=== PATIENT | male | born 1950 | race Caucasian/White ===

== ENCOUNTER 2017-11-09 12:11 | Inpatient (IN) | payer MEDICARE ==
[~2017-11-09] VITALS: Ht 172.7 cm; Wt 67.5 kg
[2017-11-09 12:41] LABS: BASOPHILS ABSOLUTE AUTO 0.06 K/mm3 (0.00-0.23); BASOPHILS PERCENT AUTO 0 % (0-2); EOSINOPHILS ABSOLUTE AUTO 0.17 K/mm3 (0.00-0.68); EOSINOPHILS PERCENT AUTO 1 % (0-6); Hematocrit 44.7 % (37.0-53.0); Hemoglobin 15.2 g/dL (13.5-17.5); IMMATURE GRAN ABSOLUTE AUTO 0.06 K/mm3 (0.00-0.10); IMMATURE GRAN PERCENT AUTO 0 % (0-1); LYMPHOCYTES ABSOLUTE AUTO 1.19 K/mm3 (0.84-5.20); LYMPHOCYTES PERCENT AUTO 7 % (21-46); MONOCYTES ABSOLUTE AUTO 1.21 K/mm3 (0.16-1.47); MONOCYTES PERCENT AUTO 7 % (4-13); Mean Corpuscular HGB 28.7 pg (26.0-34.0); Mean Corpuscular Volume 84 fL (80-100); NEUTROPHILS ABSOLUTE AUTO 14.13 K/mm3 (1.96-9.15); NEUTROPHILS PERCENT AUTO 84 % (41-73); Platelet Count 236 K/mm3 (150-400); RDW Coefficient Variation 12.8 % (11.7-14.2); RDW Standard Deviation 39.6 fL (35.1-46.3); White Blood Cell Count 16.82 K/mm3 (4.00-11.30)
[2017-11-09 12:57] LABS: International Normalized Ratio 1.1; Prothrombin Time Results 11.5 Sec (9.7-11.5)
[2017-11-09 13:04] LABS: Alanine Aminotransfer (ALT/SGP 15 U/L (12-78); Albumin, Blood 3.7 g/dL (3.4-5.0); Alk Phos 103 U/L (50-136); Anion Gap 7 mmol/L (6-16); Aspartate Aminotrans (AST/SGOT 11 U/L (12-37); Bilirubin, Total 0.5 mg/dL (0.1-1.0); Blood Urea Nitrogen 27 mg/dL (8-24); Bun/Creatinine Ratio 18.1 (12.0-20.0); CO2, Blood 25 mmol/L (21-32); Calcium, Blood 9.4 mg/dL (8.5-10.1); Chloride, Blood 107 mmol/L (98-108); Creatinine, Blood 1.49 mg/dL (0.60-1.20); Globulin, Blood 3.6 g/dL (2.2-4.0); Glomerular Filtration Rate 50 (60-); Glucose, Blood 146 mg/dL (70-99); Potassium, Blood 4.2 mmol/L (3.5-5.5); Sodium, Blood 139 mmol/L (136-145); Total Protein, Blood 7.3 g/dL (6.4-8.2); Troponin I <0.015 ng/mL (0.000-0.040)
[2017-11-09 21:57] LABS: Appearance, Urine Clear (Clear); Bilirubin, Urine Neg (Neg); Blood, Urine 2+ (Neg); Color, Urine Yellow (P-Yellow); Glucose Qualitative, Urine 1+ (Neg); Ketones, Urine Neg (Neg); Leukocyte Esterase, Urine Neg (Neg); Nitrite, Urine Neg (Neg); Protein, Urine 3+ (Neg); Specific Gravity, Urine 1.015 (1.003-1.022); Urobilinogen, Urine NORM (Normal)
[2017-11-09 22:11] LABS: Bacteria Not Seen /hpf; Red Blood Cells, Urine Not Seen /hpf (0-2); Squamous Epithelial Cells Not Seen /hpf (Few); White Blood Cells, Urine Not Seen /hpf (0-5)
[2017-11-10 05:39] LABS: Hematocrit 37.9 % (37.0-53.0); Hemoglobin 12.6 g/dL (13.5-17.5); Mean Corpuscular HGB 28.4 pg (26.0-34.0); Mean Corpuscular HGB Conc 33.2 g/dL (31.5-36.5); Mean Corpuscular Volume 86 fL (80-100); Mean Platelet Volume 10.5 fL (9.1-12.4); Platelet Count 188 K/mm3 (150-400); RDW Coefficient Variation 12.9 % (11.7-14.2); RDW Standard Deviation 40.3 fL (35.1-46.3); Red Blood Cell Count 4.43 M/mm3 (4.30-5.90); White Blood Cell Count 22.02 K/mm3 (4.00-11.30)
[2017-11-10 06:02] LABS: Bun/Creatinine Ratio 21.9 (12.0-20.0); Creatinine, Blood 1.51 mg/dL (0.60-1.20); Potassium, Blood 4.1 mmol/L (3.5-5.5)
[2017-11-10] MEDS ORDERED: ACET325 PO (11:34)
[2017-11-10] MEDS ORDERED: CLOP75 PO (11:35)
[2017-11-10] MEDS ORDERED: ASPI81CH PO (11:35)
[2017-11-10] MEDS ORDERED: ROBITUSSIN100 MG/5 M PO (11:36)
[2017-11-10] MEDS ORDERED: Hydrocodone-Ap1 EA20 PO (11:37)
[2017-11-10] MEDS ORDERED: METO25ER PO (11:38)
[2017-11-10] MEDS ORDERED: Nicoderm Cq1 EAC1 TD (11:38)
[2017-11-10] MEDS ORDERED: PANT40 PO (11:39)
[2017-11-10] MEDS ORDERED: ALBU90OI INH (11:39)
[2017-11-10] MEDS ORDERED: Amox Tr-K Clv1 EAC2 PO (11:40)
[2017-11-10] MEDS ORDERED: METF500C PO (11:41)
[2017-11-10] MEDS ORDERED: DULERA 100 MCG/13 GM INH (11:41)
[2017-11-10] MEDS ORDERED: (None)20 M1 PO (11:42)
[2017-11-10] MEDS ORDERED: SIMV40 PO (11:43)
== END 2017-11-10 12:50 | disposition home or self-care (01) | DRG 871 ==
LOC: ER 12:11 → MEDS 14:11
PROVIDERS: Emergency Medicine; Internal Medicine
DX: A41.9 Sepsis, unspecified organism (principal); J18.9 Pneumonia, unspecified organism; J96.01 Acute respiratory failure with hypoxia; N17.9 Acute kidney failure, unspecified; R65.20 Severe sepsis without septic shock; J44.9 Chronic obstructive pulmonary disease, unspecified; N18.3 Chronic kidney disease, stage 3 (moderate); I25.10 Atherosclerotic heart disease of native coronary artery without angina pectoris; G89.29 Other chronic pain; M54.9 Dorsalgia, unspecified; E11.22 Type 2 diabetes mellitus with diabetic chronic kidney disease; I50.9 Heart failure, unspecified; F17.210 Nicotine dependence, cigarettes, uncomplicated; Z95.1 Presence of aortocoronary bypass graft; Z95.810 Presence of automatic (implantable) cardiac defibrillator
CPT/HCPCS: 36415; 71046; 80048; 80053; 81001; 83605; 83880; 84484; 85025; 85027; 85610; 85730; 87070; 87086; 87205; 93005; 93010; 94640; 94644; 94760; 96361; 96365; 96367; 96375; 99285; J0456; J0696; J1650; J2930; J7030; J7050

== ENCOUNTER 2018-01-30 13:06 | Emergency (ER) | payer MEDICARE ==
[~2018-01-30] VITALS: Ht 172.7 cm; Wt 68.0 kg
[~2018-01-30 13:06] MED LIST: (None)20 M1 PO; ACET325 PO; ALBU90OI INH; ASPI81CH PO; Amox Tr-K Clv1 EAC2 PO; CLOP75 PO; DULERA 100 MCG/13 GM INH; Hydrocodone-Ap1 EA20 PO; METF500C PO; METO25ER PO; Nicoderm Cq1 EAC1 TD; PANT40 PO; ROBITUSSIN100 MG/5 M PO; SIMV40 PO
[2018-01-30 14:59] LABS: BASOPHILS ABSOLUTE AUTO 0.06 K/mm3 (0.00-0.23); BASOPHILS PERCENT AUTO 1 % (0-2); EOSINOPHILS ABSOLUTE AUTO 0.22 K/mm3 (0.00-0.68); EOSINOPHILS PERCENT AUTO 2 % (0-6); Hematocrit 44.5 % (37.0-53.0); Hemoglobin 14.6 g/dL (13.5-17.5); IMMATURE GRAN ABSOLUTE AUTO 0.03 K/mm3 (0.00-0.10); IMMATURE GRAN PERCENT AUTO 0 % (0-1); LYMPHOCYTES ABSOLUTE AUTO 2.55 K/mm3 (0.84-5.20); LYMPHOCYTES PERCENT AUTO 27 % (21-46); MONOCYTES ABSOLUTE AUTO 0.87 K/mm3 (0.16-1.47); MONOCYTES PERCENT AUTO 9 % (4-13); Mean Corpuscular HGB 27.9 pg (26.0-34.0); Mean Corpuscular HGB Conc 32.8 g/dL (31.5-36.5); Mean Corpuscular Volume 85 fL (80-100); Mean Platelet Volume 9.9 fL (9.1-12.4); NEUTROPHILS ABSOLUTE AUTO 5.89 K/mm3 (1.96-9.15); NEUTROPHILS PERCENT AUTO 61 % (41-73); Platelet Count 214 K/mm3 (150-400); RDW Coefficient Variation 13.5 % (11.7-14.2); Red Blood Cell Count 5.23 M/mm3 (4.30-5.90); White Blood Cell Count 9.62 K/mm3 (4.00-11.30)
[2018-01-30 15:20] LABS: Bun/Creatinine Ratio 19.6 (12.0-20.0); Calcium, Blood 9.5 mg/dL (8.5-10.1); Creatinine, Blood 1.38 mg/dL (0.60-1.20); Potassium, Blood 3.8 mmol/L (3.5-5.5)
[2018-01-30] MEDS ORDERED: CYCL10 PO (15:57)
== END 2018-01-30 16:46 | disposition home or self-care (01) ==
LOC: ER 13:06
PROVIDERS: Emergency Medicine
DX: M54.5 Low back pain (principal); G89.29 Other chronic pain; G31.89 Other specified degenerative diseases of nervous system
CPT/HCPCS: 72131; 80048; 85025; 96374; 99284-25; J3010

== ENCOUNTER 2018-03-24 08:01 | Emergency (ER) | payer MEDICARE ==
[~2018-03-24] VITALS: Ht 172.7 cm; Wt 77.1 kg
[~2018-03-24 08:01] MED LIST changes: +CYCL10 PO
[2018-03-24 09:45] LABS: BASOPHILS ABSOLUTE AUTO 0.09 K/mm3 (0.00-0.23); BASOPHILS PERCENT AUTO 1 % (0-2); EOSINOPHILS ABSOLUTE AUTO 0.39 K/mm3 (0.00-0.68); EOSINOPHILS PERCENT AUTO 4 % (0-6); Hematocrit 44.9 % (37.0-53.0); Hemoglobin 14.6 g/dL (13.5-17.5); IMMATURE GRAN ABSOLUTE AUTO 0.03 K/mm3 (0.00-0.10); IMMATURE GRAN PERCENT AUTO 0 % (0-1); LYMPHOCYTES ABSOLUTE AUTO 2.05 K/mm3 (0.84-5.20); LYMPHOCYTES PERCENT AUTO 21 % (21-46); MONOCYTES ABSOLUTE AUTO 0.98 K/mm3 (0.16-1.47); MONOCYTES PERCENT AUTO 10 % (4-13); Mean Corpuscular HGB 28.2 pg (26.0-34.0); Mean Corpuscular HGB Conc 32.5 g/dL (31.5-36.5); Mean Corpuscular Volume 87 fL (80-100); Mean Platelet Volume 9.7 fL (9.1-12.4); NEUTROPHILS ABSOLUTE AUTO 6.38 K/mm3 (1.96-9.15); NEUTROPHILS PERCENT AUTO 64 % (41-73); Platelet Count 216 K/mm3 (150-400); RDW Standard Deviation 41.2 fL (35.1-46.3); Red Blood Cell Count 5.17 M/mm3 (4.30-5.90); White Blood Cell Count 9.92 K/mm3 (4.00-11.30)
[2018-03-24 10:01] LABS: Bun/Creatinine Ratio 19.4 (12.0-20.0); Calcium, Blood 9.5 mg/dL (8.5-10.1); Creatinine, Blood 1.29 mg/dL (0.60-1.20)
[2018-03-24] MEDS ORDERED: ALBU90OI INH (10:45)
[2018-03-24] MEDS ORDERED: Prednisone20 MG PO (10:45)
[2018-03-24] MEDS ORDERED: Cyclobenzaprine5 MG PO (10:57)
[2018-03-24] MEDS ORDERED: Vibramycin100 MG PO (11:46)
[2018-03-24] MEDS ORDERED: Proventil5 MG/1 ML INH (11:46)
== END 2018-03-24 11:54 | disposition home or self-care (01) ==
LOC: ER 08:01
PROVIDERS: Emergency Medicine
DX: J44.1 Chronic obstructive pulmonary disease with (acute) exacerbation (principal); I25.10 Atherosclerotic heart disease of native coronary artery without angina pectoris; I50.9 Heart failure, unspecified; F17.210 Nicotine dependence, cigarettes, uncomplicated
CPT/HCPCS: 36415; 71046; 80048; 85025; 93005; 93010; 94644; 96374; 96375; 99284-25; J1885; J2930

== ENCOUNTER 2018-06-10 17:11 | Emergency (ER) | payer MEDICARE ==
[~2018-06-10] VITALS: Ht 172.7 cm; Wt 79.4 kg
[~2018-06-10 17:11] MED LIST changes: +CARV3.125; +CLOP75; +Cyclobenzaprine5 MG PO; +IBUP600 PO; +ISOD40ER; +LEVO750 PO; +Prednisone20 MG PO; +Prednisone50 MG PO; +Proventil5 MG/1 ML INH; +TIOT18 INH; +Vibramycin100 MG PO
== END 2018-06-10 18:39 | disposition home or self-care (01) ==
LOC: ER 17:11
DX: J44.9 Chronic obstructive pulmonary disease, unspecified (principal); I10 Essential (primary) hypertension; F17.210 Nicotine dependence, cigarettes, uncomplicated; Z79.899 Other long term (current) drug therapy; Z79.01 Long term (current) use of anticoagulants; Z79.52 Long term (current) use of systemic steroids; Z86.73 Personal history of transient ischemic attack (TIA), and cerebral infarction without residual deficits
CPT/HCPCS: 71046; 99283-25

== ENCOUNTER 2018-06-13 23:27 | Emergency (ER) | payer MEDICARE ==
[~2018-06-13] VITALS: Ht 172.7 cm; Wt 77.1 kg
[2018-06-14] MEDS ORDERED: Prednisone20 MG PO (01:03)
[2018-06-14] MEDS ORDERED: Norco 5-325 Ta1 EACH PO (01:04)
== END 2018-06-14 01:57 | disposition home or self-care (01) ==
LOC: ER 23:27
DX: M54.32 Sciatica, left side (principal); I10 Essential (primary) hypertension; F17.210 Nicotine dependence, cigarettes, uncomplicated; Z86.73 Personal history of transient ischemic attack (TIA), and cerebral infarction without residual deficits
CPT/HCPCS: 96372; 99283-25; J1885

== ENCOUNTER 2018-06-18 10:08 | Inpatient (IN) | payer MEDICARE ==
[~2018-06-18] VITALS: Ht 172.7 cm; Wt 75.2 kg
[~2018-06-18 10:08] MED LIST changes: +Norco 5-325 Ta1 EACH PO
[2018-06-18 10:57] LABS: BASOPHILS ABSOLUTE AUTO 0.02 K/mm3 (0.00-0.23); BASOPHILS PERCENT AUTO 0 % (0-2); EOSINOPHILS PERCENT AUTO 1 % (0-6); Hematocrit 40.1 % (37.0-53.0); Hemoglobin 12.8 g/dL (13.5-17.5); IMMATURE GRAN ABSOLUTE AUTO 0.12 K/mm3 (0.00-0.10); IMMATURE GRAN PERCENT AUTO 1 % (0-1); LYMPHOCYTES PERCENT AUTO 21 % (21-46); MONOCYTES ABSOLUTE AUTO 1.32 K/mm3 (0.16-1.47); MONOCYTES PERCENT AUTO 8 % (4-13); Mean Corpuscular HGB 27.9 pg (26.0-34.0); Mean Corpuscular HGB Conc 31.9 g/dL (31.5-36.5); Mean Corpuscular Volume 87 fL (80-100); Mean Platelet Volume 9.6 fL (9.1-12.4); NEUTROPHILS ABSOLUTE AUTO 12.03 K/mm3 (1.96-9.15); NEUTROPHILS PERCENT AUTO 70 % (41-73); Platelet Count 278 K/mm3 (150-400); RDW Coefficient Variation 13.9 % (11.7-14.2); RDW Standard Deviation 44.8 fL (35.1-46.3); Red Blood Cell Count 4.59 M/mm3 (4.30-5.90); White Blood Cell Count 17.19 K/mm3 (4.00-11.30)
[2018-06-18 11:14] LABS: Albumin, Blood 3.1 g/dL (3.4-5.0); Bilirubin, Total 0.4 mg/dL (0.1-1.0); Bun/Creatinine Ratio 25.4 (12.0-20.0); Calcium, Blood 8.7 mg/dL (8.5-10.1); Creatinine, Blood 1.85 mg/dL (0.60-1.20); Globulin, Blood 3.2 g/dL (2.2-4.0); Potassium, Blood 3.8 mmol/L (3.5-5.5); Total Protein, Blood 6.3 g/dL (6.4-8.2); Troponin I 0.085 ng/mL (0.000-0.040)
[2018-06-18 11:54] LABS: Influenza A Negative (NEGATIVE); Influenza B Negative (NEGATIVE)
--- NOTE | 2018-06-18 17:40 | NUR ---
PT ADM [facility]. TELE PLACED. PT C/O SCIATIC PAIN. MEDICATED PER EMAR. PT REQUESTS STRONGER PAIN RELIEF AND NICOTINE PATCH. WILL CONFER WITH DR. STOKES INDEPENDENT IN ROOM. CALL LIGHT IN REACH. WILL MEDICATE PER EMAR.
--- NOTE | 2018-06-19 04:55 | NUR ---
SHIFT SUMMARY PT HAS RESTED THROUGOUT SHIFT. PT WAS ORDERED UPDRAFT TX AND RESPONDED WELL. PT DENIES ANY ACUTE ISSUES AND IS WANTING TO FEEL BETTER. PT IS CURRENTLY SLEEPING AND BREATHING EASY. BED IN LOW POSITION AND CALL LIGHT IN REACH.
[2018-06-19 05:29] LABS: BASOPHILS ABSOLUTE AUTO 0.01 K/mm3 (0.00-0.23); BASOPHILS PERCENT AUTO 0 % (0-2); EOSINOPHILS PERCENT AUTO 0 % (0-6); Hematocrit 36.7 % (37.0-53.0); Hemoglobin 11.7 g/dL (13.5-17.5); IMMATURE GRAN ABSOLUTE AUTO 0.13 K/mm3 (0.00-0.10); IMMATURE GRAN PERCENT AUTO 1 % (0-1); LYMPHOCYTES ABSOLUTE AUTO 1.08 K/mm3 (0.84-5.20); LYMPHOCYTES PERCENT AUTO 7 % (21-46); MONOCYTES ABSOLUTE AUTO 1.25 K/mm3 (0.16-1.47); MONOCYTES PERCENT AUTO 9 % (4-13); Mean Corpuscular HGB 27.7 pg (26.0-34.0); Mean Corpuscular HGB Conc 31.9 g/dL (31.5-36.5); Mean Corpuscular Volume 87 fL (80-100); Mean Platelet Volume 9.5 fL (9.1-12.4); NEUTROPHILS ABSOLUTE AUTO 12.15 K/mm3 (1.96-9.15); NEUTROPHILS PERCENT AUTO 83 % (41-73); Platelet Count 244 K/mm3 (150-400); RDW Coefficient Variation 13.9 % (11.7-14.2); RDW Standard Deviation 43.8 fL (35.1-46.3); Red Blood Cell Count 4.23 M/mm3 (4.30-5.90); White Blood Cell Count 14.62 K/mm3 (4.00-11.30)
[2018-06-19 05:53] LABS: Bun/Creatinine Ratio 30.1 (12.0-20.0); Calcium, Blood 8.5 mg/dL (8.5-10.1); Creatinine, Blood 1.66 mg/dL (0.60-1.20); Potassium, Blood 4.6 mmol/L (3.5-5.5)
--- NOTE | 2018-06-19 06:43 | NUR ---
PT PLACED ON 2 LPM NC DUE TO INCREASED SOB. PT LS ARE TIGHT AND DIMMINISHED THROUGHOUT. RT STATES HE IS NOT DUE FOR TX UNTIL 0800. PT RESPONDED WELL TO O2.
--- NOTE | 2018-06-19 09:49 | NUR ---
NOTIFIED DR. POLO PT C/O BACK PAIN AND SCIATIC PAIN THAT HE RATES 10/10 AND THAT AT HOME HE REPORTS TAKING 2 TABS OF VICODEN 325MG Q4H PRN FOR PAIN. SAID TO ORDER PT'S HOME DOSE OF PAIN MED. NOTIFIED DR. POLO PT'S BP THIS AM IS 171/68 1 HOUR AFTER TAKING HIS BP MED. DR. POLO SAID TO ORDER 10MG IV HYDRALAZINE Q6 PRN FOR SYSTOLIC OVER 160. NO OTHER NEW ORDERS AT THIS TIME.
--- NOTE | 2018-06-19 16:10 | NUR ---
THIS RN ASSUMED CARE OF PATIENT FROM [facility]. WILL CONTINUE WITH POC
--- NOTE | 2018-06-19 17:00 | NUR ---
ASSUMED CARE FROM [facility] SALGADO
[2018-06-20 04:54] LABS: BASOPHILS ABSOLUTE AUTO 0.02 K/mm3 (0.00-0.23); BASOPHILS PERCENT AUTO 0 % (0-2); EOSINOPHILS ABSOLUTE AUTO 0.12 K/mm3 (0.00-0.68); EOSINOPHILS PERCENT AUTO 1 % (0-6); Hematocrit 36.5 % (37.0-53.0); Hemoglobin 11.6 g/dL (13.5-17.5); IMMATURE GRAN ABSOLUTE AUTO 0.14 K/mm3 (0.00-0.10); IMMATURE GRAN PERCENT AUTO 1 % (0-1); LYMPHOCYTES ABSOLUTE AUTO 2.12 K/mm3 (0.84-5.20); LYMPHOCYTES PERCENT AUTO 12 % (21-46); MONOCYTES ABSOLUTE AUTO 1.76 K/mm3 (0.16-1.47); MONOCYTES PERCENT AUTO 10 % (4-13); Mean Corpuscular HGB 27.8 pg (26.0-34.0); Mean Corpuscular HGB Conc 31.8 g/dL (31.5-36.5); Mean Corpuscular Volume 88 fL (80-100); Mean Platelet Volume 9.6 fL (9.1-12.4); NEUTROPHILS ABSOLUTE AUTO 14.02 K/mm3 (1.96-9.15); NEUTROPHILS PERCENT AUTO 77 % (41-73); Platelet Count 244 K/mm3 (150-400); RDW Coefficient Variation 14.1 % (11.7-14.2); RDW Standard Deviation 45.1 fL (35.1-46.3); Red Blood Cell Count 4.17 M/mm3 (4.30-5.90); White Blood Cell Count 18.18 K/mm3 (4.00-11.30)
--- NOTE | 2018-06-20 04:57 | NUR ---
SHIFT SUMMARY PT A&O, SITTING UPRIGHT IN BED AT START OF SHIFT. PLEASANT AND TALKATIVE. PT LATER C/O SOB AFTER MOVING AROUND AND GETTING UP TO EOB. PT HAD TAKEN O2 NC OFF AND FORGOT TO PUT BACK ON. RT TX GIVEN AND PT REPORTED IMPROVEMENT. HX OF CABG, HTN, CKD, COPD AND BACK SX'S. PT REPORTED N/T IN BLE'S; MAINLY IN L LEG RELATED TO SCIATICA. USES CANE AND SBA TO AMBULATE TO BTHRM. MEDICATED PER EMAR FOR C/O PAIN IN BACK. CALL LT IN REACH. VISITOR IN AGAIN TONIGHT FOR A WHILE, REPORTED PT HOMELESS BEFORE ADMIT. ABLE TO MAKE NEEDS KNOWN.
[2018-06-20 05:28] LABS: Albumin, Blood 2.5 g/dL (3.4-5.0); Albumin/Globulin Ratio 0.9 (0.8-1.8); Bilirubin, Total 0.4 mg/dL (0.1-1.0); Bun/Creatinine Ratio 27.7 (12.0-20.0); Calcium, Blood 8.2 mg/dL (8.5-10.1); Creatinine, Blood 1.59 mg/dL (0.60-1.20); Globulin, Blood 2.9 g/dL (2.2-4.0); Magnesium, Blood 1.7 mg/dL (1.6-2.4); Potassium, Blood 4.1 mmol/L (3.5-5.5); Total Protein, Blood 5.4 g/dL (6.4-8.2)
--- NOTE | 2018-06-20 11:36 | NUR ---
Austyn was alert, friendly and communicative. No indications of unmanaged pain, labored breathing, or nauseau. Connor did express non-pathological levels of anxiety and worry secondary to his transient status in [place], and his inability to secure back surgery service. This is a source of extreme frustration for him since this was his rational for him coming [facility] recommendation [facility] a [facility]. I administered pschological first aid, helped him process his experience, and provided encouragement and comfort. Connor reports that his strategy is to return to [place] in the next week or so where he has a safe and fair living situation established. Connor thanked me for the attention and show of support, and invited me to visit again. I offered parting words of reassurance, and quietly excused myself.
--- NOTE | 2018-06-20 15:10 | NUR ---
Echocardiogram performed.
--- NOTE | 2018-06-20 18:20 | NUR ---
SHIFT SUMMARY PT AXO, PLEASANT AND COOPERATIVE WITH CARE. PT HYPERTENSIVE THOUGH HYDRALAZINE NOT YET INDICATED. PT MEDICATED FOR PAIN PER EMAR. NO ACUTE CHANGES THIS SHIFT. REPORTS AN INPROVEMENT WITH HIS BREATHING THOUGH CONTINUES TO HAVE PRODUCTIVE COUGH. IV PATENT AND SALINE LOCKED. BED IN LOW POSITION, CALL LIGHT WITHIN REACH, BED ALARM ON.
--- NOTE | 2018-06-21 04:19 | NUR ---
SHIFT SUMMARY: PT IS ALERT AND ORIENTED. PT IS CALM AND COOEPRATIVE WITH CARE. PT CALLS APPROPRIATELY. PT IS INDEPENDENT IN THE ROOM. PT REPORTS BACK PAIN, MEDICATING PER EMAR. PT REPORTS INTERMITTENT SOB, O2 @ 1.5 L, BREATHING TREATMENTS NEEDED. PT DENIES NAUSEA AND VOMITING. NO ACUTE CHANGES OR COMPLICATIONS THIS SHIFT. BED IN LOW POSITION, CALL LIGHT WITHIN REACH.
[2018-06-21 05:35] LABS: Bun/Creatinine Ratio 22.7 (12.0-20.0); Calcium, Blood 8.6 mg/dL (8.5-10.1); Creatinine, Blood 1.63 mg/dL (0.60-1.20); Potassium, Blood 4.2 mmol/L (3.5-5.5)
[2018-06-21 09:12] LABS: BASOPHILS ABSOLUTE AUTO 0.02 K/mm3 (0.00-0.23); BASOPHILS PERCENT AUTO 0 % (0-2); EOSINOPHILS PERCENT AUTO 3 % (0-6); Hematocrit 37.6 % (37.0-53.0); Hemoglobin 11.8 g/dL (13.5-17.5); IMMATURE GRAN ABSOLUTE AUTO 0.12 K/mm3 (0.00-0.10); IMMATURE GRAN PERCENT AUTO 1 % (0-1); LYMPHOCYTES ABSOLUTE AUTO 2.39 K/mm3 (0.84-5.20); LYMPHOCYTES PERCENT AUTO 14 % (21-46); MONOCYTES ABSOLUTE AUTO 1.43 K/mm3 (0.16-1.47); MONOCYTES PERCENT AUTO 8 % (4-13); Mean Corpuscular HGB 27.6 pg (26.0-34.0); Mean Corpuscular HGB Conc 31.4 g/dL (31.5-36.5); Mean Corpuscular Volume 88 fL (80-100); Mean Platelet Volume 10.1 fL (9.1-12.4); NEUTROPHILS ABSOLUTE AUTO 12.53 K/mm3 (1.96-9.15); NEUTROPHILS PERCENT AUTO 74 % (41-73); Platelet Count 229 K/mm3 (150-400); Red Blood Cell Count 4.27 M/mm3 (4.30-5.90); White Blood Cell Count 16.99 K/mm3 (4.00-11.30)
--- NOTE | 2018-06-21 17:46 | NUR ---
SUMMARY PT SITTING UP AT THE BEDSIDE EATING HIS DINNER, PT HAD DIFFICULT VOIDING T/O THE DAY, BLADDER SCAN SHOWED >999MLS IN HIS BLADDER, ORDER OBTAINED FOR FLOMAX AND STRAIGHT CATH PRN, PT RESISTANT TO THE STRAIGHT CATH FOR MOST OF THE DAY, PT ATTEMPTED TO VOID IN THE BATHROOM FREQUENTLY, PT FINALLY ALLOWED STRAIGHT CATH AT 1730, 1050 MLS OF URINE DRAINED, EDUCATED THE PT REGARDING BLADDER SCANS AND STRAIGHT CATH, PT HAS BEEN MEDICATED FOR PAIN PER EMAR T/O THE DAY, WILL CONT TO MONITOR
[2018-06-22 05:18] LABS: BASOPHILS ABSOLUTE AUTO 0.02 K/mm3 (0.00-0.23); BASOPHILS PERCENT AUTO 0 % (0-2); EOSINOPHILS ABSOLUTE AUTO 0.67 K/mm3 (0.00-0.68); EOSINOPHILS PERCENT AUTO 5 % (0-6); Hematocrit 39.1 % (37.0-53.0); IMMATURE GRAN PERCENT AUTO 1 % (0-1); LYMPHOCYTES ABSOLUTE AUTO 2.56 K/mm3 (0.84-5.20); LYMPHOCYTES PERCENT AUTO 18 % (21-46); MONOCYTES ABSOLUTE AUTO 1.32 K/mm3 (0.16-1.47); MONOCYTES PERCENT AUTO 9 % (4-13); Mean Corpuscular HGB 27.7 pg (26.0-34.0); Mean Corpuscular HGB Conc 30.7 g/dL (31.5-36.5); Mean Corpuscular Volume 90 fL (80-100); Mean Platelet Volume 9.9 fL (9.1-12.4); NEUTROPHILS ABSOLUTE AUTO 9.69 K/mm3 (1.96-9.15); NEUTROPHILS PERCENT AUTO 68 % (41-73); Platelet Count 239 K/mm3 (150-400); RDW Coefficient Variation 13.8 % (11.7-14.2); RDW Standard Deviation 45.6 fL (35.1-46.3); Red Blood Cell Count 4.33 M/mm3 (4.30-5.90); White Blood Cell Count 14.36 K/mm3 (4.00-11.30)
--- NOTE | 2018-06-22 05:37 | NUR ---
SHIFT SUMMARY: PT IS ALERT AND ORIENTED. PT IS CALM AND COOPERATIVE WITH CARE. PT HAS A SOMEWHAT FLAT, DEPRESSED APPEARING DEMEANOR. PT CALLS APPROPRIATELY. PT IS INDEPENDENT IN THE ROOM. PT REPORTED PAIN ON SEVERAL OCCASIONS, MEDICATING PER EMAR. PT DENIES NAUSEA, VOMITING, AND SOB. NO ACUTE CHANGES OVERNIGHT. BED IN LOW POSITION, CALL LIGHT WITHIN REACH. WILL REPORT TO DAY NURSE.
[2018-06-22 06:17] LABS: Alanine Aminotransfer (ALT/SGP 18 U/L (12-78); Albumin, Blood 2.7 g/dL (3.4-5.0); Albumin/Globulin Ratio 0.8 (0.8-1.8); Alk Phos 69 U/L (50-136); Anion Gap 6 mmol/L (6-16); Aspartate Aminotrans (AST/SGOT 10 U/L (12-37); Bilirubin, Total 0.3 mg/dL (0.1-1.0); Blood Urea Nitrogen 38 mg/dL (8-24); Bun/Creatinine Ratio 19.7 (12.0-20.0); CO2, Blood 31 mmol/L (21-32); Calcium, Blood 8.7 mg/dL (8.5-10.1); Chloride, Blood 103 mmol/L (98-108); Creatinine, Blood 1.93 mg/dL (0.60-1.20); Globulin, Blood 3.5 g/dL (2.2-4.0); Glomerular Filtration Rate 37 (60-); Glucose, Blood 82 mg/dL (70-99); Magnesium, Blood 1.9 mg/dL (1.6-2.4); Sodium, Blood 140 mmol/L (136-145); Total Protein, Blood 6.2 g/dL (6.4-8.2)
--- NOTE | 2018-06-22 16:30 | NUR ---
Initial palliative care consult: Austyn is a 67 year old who has a home in [place], however he was sent to the [facility] for testing and possibly surgery. He states he has been homeless and staying with friends while he has been here [facility]. He reports that he has decided not to pursue the surgery and plans to return home to [place] next week when he gets paid. He was many years ago and has no children. He reports there is no family, only a few friends here and back home in [place]. He has a history of a CABG in 2007, AICD pacer placement in 2008, HTN, COPD, chronic systolic heart failure, and CKD. He reports that he doesn't like to take medications. He is currently having trouble with urinary retention. He states that in the past this has been a problem off and on and he knew he would be needing to do something about it. MD has started him on flomax for the urinary retention. Pt reports he has chronic back and leg pain, he prefers not to take medications for this. He states that he is pretty sure he has never had any follow up on his AICD pacer since it was placed in 2008. Phone call to [employer] and spoke with Mel. She states that pt can contact his senior applications analyst when he gets home to [place] and have his AICD interrogated. Talked about code status with pt. He confirms that he would like to be a full code at this time. CM has a referral for this pt for assistance with discharge planning. Pt reports he has a dog here in [place] that he plans to take home with him to [place]. A friend in [place] is currently caring for his dog. Pt states that he knows he needs to follow up with his PCP and senior applications analyst when her goes home to [place]. PC will continue to work with pt on symptom management and disease management and education. Pt's desire to not take medications will make his disease management difficult. Educated pt on the risks of not taking medications and follow up for his disease process.
--- NOTE | 2018-06-22 17:38 | NUR ---
SUMMARY PT SITTING UP IN BED WATCHING TV, HAS BEEN INDEPENDENT IN THE ROOM T/O THE DAY, PT WITH TROUBLE VOIDING T/O THE DAY, REFUSED STRAIGHT CATH MOST OF THE DAY, DID ALLOW STRAIGHT CATH AT THE END OF THE SHIFT, PT HAS BEEN MED PER EMAR FOR PAIN AND NAUSEA, VSS, WILL CONT TO MONITOR
[2018-06-23 05:34] LABS: BASOPHILS ABSOLUTE AUTO 0.02 K/mm3 (0.00-0.23); BASOPHILS PERCENT AUTO 0 % (0-2); EOSINOPHILS ABSOLUTE AUTO 0.57 K/mm3 (0.00-0.68); EOSINOPHILS PERCENT AUTO 5 % (0-6); Hematocrit 39.1 % (37.0-53.0); Hemoglobin 12.1 g/dL (13.5-17.5); IMMATURE GRAN ABSOLUTE AUTO 0.05 K/mm3 (0.00-0.10); IMMATURE GRAN PERCENT AUTO 0 % (0-1); LYMPHOCYTES ABSOLUTE AUTO 2.09 K/mm3 (0.84-5.20); LYMPHOCYTES PERCENT AUTO 18 % (21-46); MONOCYTES ABSOLUTE AUTO 1.05 K/mm3 (0.16-1.47); MONOCYTES PERCENT AUTO 9 % (4-13); Mean Corpuscular HGB 27.9 pg (26.0-34.0); Mean Corpuscular HGB Conc 30.9 g/dL (31.5-36.5); Mean Corpuscular Volume 90 fL (80-100); Mean Platelet Volume 9.7 fL (9.1-12.4); NEUTROPHILS ABSOLUTE AUTO 8.16 K/mm3 (1.96-9.15); NEUTROPHILS PERCENT AUTO 68 % (41-73); Platelet Count 266 K/mm3 (150-400); RDW Coefficient Variation 13.7 % (11.7-14.2); RDW Standard Deviation 45.9 fL (35.1-46.3); Red Blood Cell Count 4.34 M/mm3 (4.30-5.90); White Blood Cell Count 11.94 K/mm3 (4.00-11.30)
[2018-06-23 06:11] LABS: Calcium, Blood 8.8 mg/dL (8.5-10.1); Creatinine, Blood 2.05 mg/dL (0.60-1.20); Potassium, Blood 4.3 mmol/L (3.5-5.5)
--- NOTE | 2018-06-23 08:05 | NUR ---
PT CONTINUES WITH PERIODS OF SHORTNESS OF BREATH AND REQUESTS NEB TREATMENTS FREQUENTLY. OXYGEN ROOM AIR TO 2 L PRN. MEDICATED X 1 FOR PAIN WITH HELPFUL EFFECT.
--- NOTE | 2018-06-23 19:06 | NUR ---
SHIFT SUMMARY: NO ACUTE CHANGES TO REPORT THIS SHIFT. PT A&O; CALM AND COOPERATIVE WITH CARE. PT VOIDING SPONTANEOUSLY; NO C/O PELVIC PAIN R/T URINARY RETENTION. MEDICATED FOR PAIN PER EMAR. PT UP WITH SBA TO BATHROOM. PO ABX CONTINUING. REPORT GIVEN TO ONCOMING RN.
--- NOTE | 2018-06-24 04:00 | NUR ---
67 year old Male who has been sleeping outside has hemophilous pneumonia and is homeless. He says he came from [place] 1 year ago for back surgery for 4 herniated disks and the surgery was not performed. He says he lacks social or family support and he is on the list for a apartment from [employer]. Does not have a safe environment for discharge. Medicated for chronic back pain x 1. Pt has issues with acute urinary retention and has order for straight cath prn. On flomax BID with stated helpful effect. Says he is planning to Dc today SW referral made.
[2018-06-24 08:43] LABS: Bun/Creatinine Ratio 22.6 (12.0-20.0); Calcium, Blood 8.8 mg/dL (8.5-10.1); Creatinine, Blood 1.68 mg/dL (0.60-1.20); Potassium, Blood 4.6 mmol/L (3.5-5.5)
--- NOTE | 2018-06-24 18:09 | NUR ---
SHIFT SUMMARY PATIENT A&O X4, INDEPENDENT IN THE ROOM. RN MEDICATED X2 FOR PAIN THIS SHIFT. WEARS OXYGEN AT 2 L NEEDED FOR SOB, TAKES OFF AT TIMES. SLEPT MOST OF THE SHIFT. VISITOR AT THE BEDSIDE. CALL LIGHT WITHIN REACH. NO ACUTE CHANGES. RN WILL CONTINUE TO MONITOR.
--- NOTE | 2018-06-25 18:15 | NUR ---
SHIFT SUMMARY PATIENT A&O, INDEPENDENT IN THE ROOM. DENIES ANY SOB OR NAUSEA. PATIENT HAS CHRONIC LOW BACK PAIN AND COMPLAINTS OF LLQ PAIN NEW TO TODAY. DR. POLO AWARE OF THE NEW PAIN. RN MEDICATED PER ORDERS X3. RESTED ON AND OFF THIS SHIFT. A FRIEND STOPPED BY TO VISIT. HE HAS BEEN VERY ANXIOUS ABOUT BEING DISCHARGED, STATES HE IS READY TO GO BACK HOME TO [place]. NO ACUTE CHANGES THIS SHIFT. BED IN LOWESR POSITION, CALL LIGHT WITHIN REACH. RN WILL CONTINUE TO MONITOR.
--- NOTE | 2018-06-26 06:13 | NUR ---
Rn summary: Pt is alert and oriented. Pt has done fairly well tonight. He has had need for neb treatments and this is his greatest concern for discharge. Pt states by 4 in the am he can't breath and being homeless he has no avenue for home neb treatments. Pt has been medicated x2 for backpain. His pain level goes down to 7/10 which he states is the best it gets. Pt states he plans on buying a bus ticket to [place] as soon as he gets his check. Pt rested only a short time during the night. Call light in reach.
[2018-06-26] MEDS ORDERED: ALBU90OI INH (14:02)
[2018-06-26] MEDS ORDERED: ASPI81CH PO (14:04)
[2018-06-26] MEDS ORDERED: Amoxicillin500 MG PO (14:04)
[2018-06-26] MEDS ORDERED: ATOR40TA PO (14:05)
[2018-06-26] MEDS ORDERED: CLOP75 PO (14:06)
[2018-06-26] MEDS ORDERED: BUDE6HFA INH (14:06)
[2018-06-26] MEDS ORDERED: GUAI600T33 PO (14:07)
[2018-06-26] MEDS ORDERED: Prinivil10 MG PO (14:08)
[2018-06-26] MEDS ORDERED: METO25ER PO (14:09)
[2018-06-26] MEDS ORDERED: Nicoderm Cq1 EAC1 TD (14:09)
[2018-06-26] MEDS ORDERED: TAMS.4ER PO (14:10)
--- NOTE | 2018-06-26 17:31 | NUR ---
PT DISCHARGED THE PT VERBALIZED UNDERSTANDING OF THE DC INSTRUCTIOS, PERSCRIPTIONS WERE FAXED TO [facility] PER PT REQUEST. THE PT APPEARED TO BE BREATHING EASILY ON RA AT THE TIME OF DISCHAREG, THE PT WAS A/OX3, PT WAS TRANSFERD VIA WHEELCHAIR ACCOMPANIED BY THE ROD PILER
== END 2018-06-26 15:24 | disposition home or self-care (01) | DRG 194 ==
LOC: ER 10:08 → MEDS 10:09 → ER 10:09 → MEDS 16:13
PROVIDERS: Emergency Medicine; Internal Medicine; ADMIT Hospitalist
DX: J18.9 Pneumonia, unspecified organism (principal); I16.1 Hypertensive emergency; I50.22 Chronic systolic (congestive) heart failure; I13.0 Hypertensive heart and chronic kidney disease with heart failure and stage 1 through stage 4 chronic kidney disease, or unspecified chronic kidney disease; N40.0 Benign prostatic hyperplasia without lower urinary tract symptoms; R79.89 Other specified abnormal findings of blood chemistry; I13.10 Hypertensive heart and chronic kidney disease without heart failure, with stage 1 through stage 4 chronic kidney disease, or unspecified chronic kidney disease; N18.3 Chronic kidney disease, stage 3 (moderate); F17.210 Nicotine dependence, cigarettes, uncomplicated; R91.1 Solitary pulmonary nodule; Z95.1 Presence of aortocoronary bypass graft; Z91.15 Patient's noncompliance with renal dialysis; Z59.0 Homelessness; Z86.73 Personal history of transient ischemic attack (TIA), and cerebral infarction without residual deficits; Z95.0 Presence of cardiac pacemaker
CPT/HCPCS: 36415; 51701; 71046; 71250; 80048; 80053; 83735; 83880; 84153; 84484; 85025; 87040; 87070; 87077; 87185; 87205; 87804; 90686; 93005; 93010; 93306; 94640; 94760; 96374; 99285-25; G0008; J0360; J0456; J1644; J1940; J2930; J7050; J7626

== ENCOUNTER 2019-01-24 09:03 | Emergency (ER) | payer MEDICARE ==
[~2019-01-24] VITALS: Ht 172.7 cm; Wt 77.1 kg
[~2019-01-24 09:03] MED LIST changes: +ATOR40TA PO; +Amoxicillin500 MG PO; +BUDE6HFA INH; +GUAI600T33 PO; +Prinivil10 MG PO; +TAMS.4ER PO
[2019-01-24] MEDS ORDERED: ACET325 PO (09:18)
[2019-01-24 09:48] LABS: BASOPHILS ABSOLUTE AUTO 0.08 K/mm3 (0.00-0.23); BASOPHILS PERCENT AUTO 1 % (0-2); EOSINOPHILS ABSOLUTE AUTO 0.36 K/mm3 (0.00-0.68); EOSINOPHILS PERCENT AUTO 4 % (0-6); Hematocrit 45.1 % (37.0-53.0); Hemoglobin 14.3 g/dL (13.5-17.5); IMMATURE GRAN ABSOLUTE AUTO 0.02 K/mm3 (0.00-0.10); IMMATURE GRAN PERCENT AUTO 0 % (0-1); LYMPHOCYTES ABSOLUTE AUTO 1.83 K/mm3 (0.84-5.20); LYMPHOCYTES PERCENT AUTO 20 % (21-46); MONOCYTES ABSOLUTE AUTO 0.63 K/mm3 (0.16-1.47); MONOCYTES PERCENT AUTO 7 % (4-13); Mean Corpuscular HGB 27.7 pg (26.0-34.0); Mean Corpuscular HGB Conc 31.7 g/dL (31.5-36.5); Mean Corpuscular Volume 87 fL (80-100); Mean Platelet Volume 9.9 fL (9.1-12.4); NEUTROPHILS ABSOLUTE AUTO 6.38 K/mm3 (1.96-9.15); NEUTROPHILS PERCENT AUTO 69 % (41-73); Platelet Count 246 K/mm3 (150-400); RDW Coefficient Variation 13.5 % (11.7-14.2); RDW Standard Deviation 43.2 fL (35.1-46.3); Red Blood Cell Count 5.17 M/mm3 (4.30-5.90)
[2019-01-24 10:02] LABS: Albumin, Blood 3.6 g/dL (3.4-5.0); Bilirubin, Total 0.5 mg/dL (0.1-1.0); Bun/Creatinine Ratio 11.6 (12.0-20.0); Calcium, Blood 9.1 mg/dL (8.5-10.1); Creatinine, Blood 1.47 mg/dL (0.60-1.20); Globulin, Blood 3.5 g/dL (2.2-4.0); Total Protein, Blood 7.1 g/dL (6.4-8.2)
[2019-01-24 10:12] LABS: Source, Urine Catheter
[2019-01-24 10:18] LABS: Bilirubin, Urine Neg (Neg); Blood, Urine 2+ (Neg); Glucose Qualitative, Urine Neg (Neg); Ketones, Urine Neg (Neg); Leukocyte Esterase, Urine Neg (Neg); Nitrite, Urine Neg (Neg); Protein, Urine 3+ (Neg); Urobilinogen, Urine NORM (Normal)
[2019-01-24 10:25] LABS: Appearance, Urine Clear (Clear); Color, Urine Yellow (P-Yellow)
[2019-01-24 10:26] LABS: Amorphous Light (0-Heavy); Bacteria Few /hpf; Red Blood Cells, Urine 0-2 /hpf (0-2); Squamous Epithelial Cells Rare /hpf (Few); White Blood Cells, Urine 0-2 /hpf (0-5)
[2019-01-24] MEDS ORDERED: LIDO700A20 TOP (10:49)
== END 2019-01-24 11:16 | disposition home or self-care (01) ==
LOC: ER 09:03
PROVIDERS: Emergency Medicine
DX: R33.9 Retention of urine, unspecified (principal); I25.810 Atherosclerosis of coronary artery bypass graft(s) without angina pectoris; I13.0 Hypertensive heart and chronic kidney disease with heart failure and stage 1 through stage 4 chronic kidney disease, or unspecified chronic kidney disease; N18.3 Chronic kidney disease, stage 3 (moderate); I50.22 Chronic systolic (congestive) heart failure; F17.210 Nicotine dependence, cigarettes, uncomplicated
CPT/HCPCS: 36415; 51702; 80053; 81001; 85025; 99284-25

== ENCOUNTER 2019-01-27 16:41 | Emergency (ER) | payer MEDICARE ==
[~2019-01-27] VITALS: Ht 172.7 cm; Wt 77.1 kg
[~2019-01-27 16:41] MED LIST changes: +LIDO700A20 TOP
== END 2019-01-27 20:00 | disposition left against medical advice (07) ==
LOC: ER 16:41
DX: T83.031A Leakage of indwelling urethral catheter, initial encounter (principal); N40.0 Benign prostatic hyperplasia without lower urinary tract symptoms; Z79.899 Other long term (current) drug therapy; I10 Essential (primary) hypertension; I25.10 Atherosclerotic heart disease of native coronary artery without angina pectoris; Z86.73 Personal history of transient ischemic attack (TIA), and cerebral infarction without residual deficits; F43.10 Post-traumatic stress disorder, unspecified; F17.210 Nicotine dependence, cigarettes, uncomplicated
CPT/HCPCS: 99283

== ENCOUNTER 2019-05-04 17:27 | Emergency (ER) | payer MEDICARE ==
[~2019-05-04] VITALS: Ht 172.7 cm; Wt 79.4 kg
[2019-05-04 18:02] LABS: BASOPHILS ABSOLUTE AUTO 0.06 K/mm3 (0.00-0.23); BASOPHILS PERCENT AUTO 1 % (0-2); EOSINOPHILS ABSOLUTE AUTO 0.37 K/mm3 (0.00-0.68); EOSINOPHILS PERCENT AUTO 3 % (0-6); Hematocrit 44.8 % (37.0-53.0); Hemoglobin 14.6 g/dL (13.5-17.5); IMMATURE GRAN ABSOLUTE AUTO 0.02 K/mm3 (0.00-0.10); IMMATURE GRAN PERCENT AUTO 0 % (0-1); LYMPHOCYTES ABSOLUTE AUTO 1.97 K/mm3 (0.84-5.20); LYMPHOCYTES PERCENT AUTO 18 % (21-46); MONOCYTES ABSOLUTE AUTO 0.91 K/mm3 (0.16-1.47); MONOCYTES PERCENT AUTO 9 % (4-13); Mean Corpuscular HGB Conc 32.6 g/dL (31.5-36.5); Mean Corpuscular Volume 86 fL (80-100); Mean Platelet Volume 9.5 fL (9.1-12.4); NEUTROPHILS PERCENT AUTO 69 % (41-73); Platelet Count 210 K/mm3 (150-400); RDW Coefficient Variation 13.6 % (11.7-14.2); RDW Standard Deviation 42.3 fL (35.1-46.3); Red Blood Cell Count 5.22 M/mm3 (4.30-5.90); White Blood Cell Count 10.73 K/mm3 (4.00-11.30)
[2019-05-04 18:25] LABS: Alanine Aminotransfer (ALT/SGP 16 U/L (12-78); Albumin, Blood 3.8 g/dL (3.4-5.0); Alk Phos 121 U/L (50-136); Anion Gap 5 mmol/L (6-16); Aspartate Aminotrans (AST/SGOT 14 U/L (12-37); Bilirubin, Total 0.4 mg/dL (0.1-1.0); Blood Urea Nitrogen 22 mg/dL (8-24); CO2, Blood 27 mmol/L (21-32); Calcium, Blood 9.5 mg/dL (8.5-10.1); Chloride, Blood 105 mmol/L (98-108); Creatinine, Blood 1.57 mg/dL (0.60-1.20); Globulin, Blood 3.7 g/dL (2.2-4.0); Glomerular Filtration Rate 47 (60-); Glucose, Blood 101 mg/dL (70-99); Sodium, Blood 137 mmol/L (136-145); Total Protein, Blood 7.5 g/dL (6.4-8.2); Troponin I <0.015 ng/mL (0.000-0.040)
[2019-05-04] MEDS ORDERED: CLOP75 PO (20:23)
[2019-05-04] MEDS ORDERED: Zithromax250 MG PO (21:17)
[2019-05-04] MEDS ORDERED: METPRE4DP PO (21:17)
== END 2019-05-04 21:39 | disposition home or self-care (01) ==
LOC: ER 17:27
PROVIDERS: Physician Assistant
DX: J44.0 Chronic obstructive pulmonary disease with (acute) lower respiratory infection (principal); J20.9 Acute bronchitis, unspecified; J44.1 Chronic obstructive pulmonary disease with (acute) exacerbation; I10 Essential (primary) hypertension; F17.210 Nicotine dependence, cigarettes, uncomplicated; Z86.73 Personal history of transient ischemic attack (TIA), and cerebral infarction without residual deficits; Z79.899 Other long term (current) drug therapy; Z79.02 Long term (current) use of antithrombotics/antiplatelets
CPT/HCPCS: 36415; 71046; 80053; 83880; 84484; 85025; 93005; 93010; 94640; 96374; 99284-25; J2930

== ENCOUNTER 2019-08-29 16:19 | Emergency (ER) | payer MEDICARE ==
[~2019-08-29] VITALS: Ht 172.7 cm; Wt 71.7 kg
[~2019-08-29 16:19] MED LIST changes: +METPRE4DP PO; +Zithromax250 MG PO
[2019-08-29 17:04] LABS: BASOPHILS ABSOLUTE AUTO 0.08 K/mm3 (0.00-0.23); BASOPHILS PERCENT AUTO 1 % (0-2); EOSINOPHILS ABSOLUTE AUTO 0.19 K/mm3 (0.00-0.68); EOSINOPHILS PERCENT AUTO 2 % (0-6); Hematocrit 43.7 % (37.0-53.0); Hemoglobin 13.8 g/dL (13.5-17.5); IMMATURE GRAN ABSOLUTE AUTO 0.04 K/mm3 (0.00-0.10); IMMATURE GRAN PERCENT AUTO 0 % (0-1); LYMPHOCYTES ABSOLUTE AUTO 2.15 K/mm3 (0.84-5.20); LYMPHOCYTES PERCENT AUTO 19 % (21-46); MONOCYTES ABSOLUTE AUTO 1.05 K/mm3 (0.16-1.47); MONOCYTES PERCENT AUTO 9 % (4-13); Mean Corpuscular HGB 27.1 pg (26.0-34.0); Mean Corpuscular HGB Conc 31.6 g/dL (31.5-36.5); Mean Corpuscular Volume 86 fL (80-100); Mean Platelet Volume 9.7 fL (9.1-12.4); NEUTROPHILS ABSOLUTE AUTO 7.89 K/mm3 (1.96-9.15); NEUTROPHILS PERCENT AUTO 69 % (41-73); Platelet Count 287 K/mm3 (150-400); RDW Standard Deviation 40.6 fL (35.1-46.3)
[2019-08-29 17:14] LABS: Albumin, Blood 3.6 g/dL (3.4-5.0); Albumin/Globulin Ratio 0.9 (0.8-1.8); Bilirubin, Total 0.3 mg/dL (0.1-1.0); Bun/Creatinine Ratio 16.7 (12.0-20.0); Calcium, Blood 9.4 mg/dL (8.5-10.1); Creatinine, Blood 1.5 mg/dL (0.60-1.20); Globulin, Blood 4.1 g/dL (2.2-4.0); Potassium, Blood 4.1 mmol/L (3.5-5.5); Total Protein, Blood 7.7 g/dL (6.4-8.2); Troponin I 0.027 ng/mL (0.000-0.040)
[2019-08-29] MEDS ORDERED: AZIT250 PO (17:42)
[2019-08-29] MEDS ORDERED: PRED10 PO (17:42)
[2019-08-29] MEDS ORDERED: ALBU90OI INH (17:42)
== END 2019-08-29 18:16 | disposition home or self-care (01) ==
LOC: ER 16:19
PROVIDERS: Emergency Medicine
DX: J44.1 Chronic obstructive pulmonary disease with (acute) exacerbation (principal); I13.0 Hypertensive heart and chronic kidney disease with heart failure and stage 1 through stage 4 chronic kidney disease, or unspecified chronic kidney disease; I50.9 Heart failure, unspecified; N18.9 Chronic kidney disease, unspecified; F17.210 Nicotine dependence, cigarettes, uncomplicated
CPT/HCPCS: 36415; 71046; 80053; 83880; 84484; 85025; 93005; 93010; 94644; 94664; 96374; 99285-25; J2930